=== PATIENT | female | born 1975 | race Two or more races ===

== ENCOUNTER 2017-03-04 00:50 | Emergency (ER) | payer OTHER ==
[~2017-03-04] VITALS: Ht 167.6 cm; Wt 100.0 kg
[~2017-03-04 00:50] MED LIST: FERR-83 PO; PRE20 PO; RANI150T11 PO
[2017-03-04 00:52] VITALS: BP 142/85; PULSE 64; RESP 16; O2SAT 99
--- NOTE | 2017-03-04 01:27 | ED.REPORT ---
HPI-Abd Pain F 40 and Over Date of Service Mar 04, 2017 ED Provider: Victor Hugo Cleaning MD Pt is a 41 year old female with a history of gallstones who presents to the ED complaining of RUQ abdominal pain onset this evening. She c/o associated nausea and back pain. She denies vomiting, fever, diarrhea, and any other symptoms. Pt reports that she had an US 2 years ago for similar symptoms and was diagnosed with gallstones. Nursing Notes Stated Complaint: R UPPER QUADRANT PAIN Chief Complaint: Female Abdominal Pain Nursing Notes Reviewed: Yes Allergies: Coded Allergies: No Known Allergies (Unverified , 06/19/15) Scheduled Ferrous Sulfate (Ferrous Sulfate) 325 Mg Tablet 325 MG PO DAILY Prednisone (PredniSONE) 20 Mg Tablet 40 MG PO DAILY Ranitidine (Zantac) 150 Mg Tablet 150 MG PO BID please verify dosage & frequency General Time Seen by MD: 01:26 Chief Complaint Abdominal pain Hx Obtained From: Patient Arrived By: Walk-in Sudden in Onset?: No Onset Occurred: 5 - 8 hours ago Symptom Duration: Since onset Location: : RUQ Quality: Painful Severity: Current: Moderate Severity: Maximum: Moderate Recent Healthcare: No recent doctor visit, No recent hospitalization Similar Sx Previous: Yes Past Medical History Past Medical History generally healthy Reports: GERD Past Surgical History right shoulder repair Family History Father: [place] and cardiac stenting in his 70s Reports: Coronary artery disease Smoking History Unknown if Ever Smoker Social History Alcohol Use: Denies alcohol use Drug Use: Denies drug use Other Social History: Good social support, Local resident Ambulatory Status Independent Review of Systems Constitutional: Denies: Fever GI: Reports: Abdominal pain, Nausea, Denies: Diarrhea, Vomiting Musculoskeletal: Reports: Back pain Complete sys rev & neg: except as marked. Physical Exam Vital Signs Vital Signs (First) Date Time Temp Pulse Resp B/P Pulse Ox O2 Delivery O2 Flow Rate FiO2 03/04/17 00:52 36.2 64 16 142/85 99 Room Air Initial VS: Reviewed, Vital signs normal Head / Eyes: Atraumatic, Normocephalic Neck: Supple, Full range of motion Extremities: Vascular intact, Neuro intact Skin: Warm, Dry, No cyanosis Neurologic: Alert, Oriented, Nonfocal Psychiatric: Mood/affect normal, Behavior normal General/Constitutional: Awake, Alert, No acute distress, Well hydrated, Cooperative Appearance / Presentation: Positive: Pale Respiratory / Chest: Atraumatic, Breath sounds NL, Breath sounds = bilat Cardiovascular: Heart rate NL, Regular rhythm, Heart sounds NL Abdomen: Atraumatic, Soft Tender in RUQ and epigastrium. Back: Atraumatic, Full range of motion CVA tenderness. Interpretation & Diagnostics US RUQ: IMPRESSION: Cholelithiasis. Mild hepatic steatosis, statistically, versus other hepatocellular process. Pancreas not optimally seen. Transmitted to the ED at 04:46 by Gina Loredo M.D. Lab Results Interpretation Result Diagram: 03/04/17 0120 03/04/17 0120 Test 03/04/17 01:20 03/04/17 01:30 White Blood Count 7.4th/mm3 (3.8-10.1) Red Blood Count 4.10mil/mm3 (3.90-5.20) Hemoglobin 10.9g/dL (12.0-15.6) Hematocrit 34.5% (35.0-46.0) Mean Corpuscular Volume 84.1fL (81-100) Mean Corpuscular Hemoglobin 26.6pg (27.0-35.0) Mean Corpuscular Hemoglobin Concent 31.6% (32.0-37.0) Red Cell Distribution Width 15.1% (12.3-15.4) Platelet Count 205bil/L (150-400) Neutrophils (%) (Auto) 60.3% (40-74) Lymphocytes (%) (Auto) 27.8% (14-46) Monocytes (%) (Auto) 9.1% (4-12) Eosinophils (%) (Auto) 1.9% (0-5) Basophils (%) (Auto) 0.8% (0-3) Hold Purple Top Tube Received (Received) Hold Blue Top Tube Received (Received) Sodium Level 137mEq/L (134-144) Potassium Level 4.2mEq/L (3.5-5.2) Chloride Level 102mEq/L (97-108) Carbon Dioxide Level 23mmol/L (18-29) Blood Urea Nitrogen 11mg/dL (6-24) Creatinine 0.64mg/dL (0.57-1.00) Estimat Glomerular Filtration Rate 146mL/min (>59) Glucose Level 105mg/dL (60-99) Calcium Level 9.5mg/dL (8.5-10.1) Magnesium Level 1.8mg/dL (1.6-2.6) Total Bilirubin 0.2mg/dL (0.0-1.2) Aspartate Amino Transf (AST/SGOT) 35U/L (0-50) Alanine Aminotransferase (ALT/SGPT) 28U/L (0-32) Alkaline Phosphatase 70U/L (25-150) Total Protein 7.5g/dL (6.4-8.4) Albumin 4.0g/dL (3.4-5.0) Lipase 46U/L (13-60) Hold Red Top Tube Received (Received) Hold [place] Top Tube Received (Received) Hold Urine Received (Received) Lab values outside NL range: no clinical significance. Re-Eval/Medical Decision Med Decision/Clinical Course 41-year-old female with known gallstones from an ultrasound 2 years ago. She now has increased right upper quadrant abdominal pain. Her labs are all normal. Ultrasound shows evidence of multiple gallstones but no significant evidence of cholecystitis or obstruction. She will be discharged home with instructions to eat small meals and avoid fatty foods. Tylenol and/or ibuprofen as stated for pain. Follow-up with surgeon for evaluation for cholecystectomy. Source of Hx: Old records Re-Evaluation/Progress #1: Time of Eval: 03:15 )( Re-Eval Abdomen: Soft Re-Evaluation/Progress Note: Pt rechecked. She reports that she is in pain again. Her pain is exacerbated when laying on her back. All questions addressed. Re-Evaluation/Progress #2: Time of Eval: 04:28 )( Re-Eval Abdomen: Soft Re-Evaluation/Progress Note: Pt rechecked. Informed pt of plan for discharge. Pt understands and agrees with plan for discharge. F/U instructions and RTER warnings given. All questions addressed. Counseled Regarding: Diagnosis, Lab results, Need for follow-up, When/why to return to ED Discharge & Departure Primary Impression: Gallstones Additional Impression: Biliary colic Disposition: Home Discharge Condition All VS Reviewed: Yes Condition: Stable Patient Instructions: Biliary Colic (ED) Additional Instructions: Many gallstones but no evidence of gallbladder infection or inflammation right now. Talked to a surgeon about getting your gallbladder taken out. Eat small meals and avoid fatty foods. Referrals: Maxime Perkins MD (PCP) Scribe Attestation Portions of this note were transcribed by Katie Naylor. I, Dr. Cleaning personally performed the history, physical exam and medical decision-making; I reviewed and confirmed the accuracy of the information in the transcribed note. Signed by: Ervin Chaudhary, 03/04/17 and 02:30. copies to: Maxime Perkins MD, Howard L MD Mar 04, 2017 01:27 Katie Demarco Mar 04, 2017 01:35
[2017-03-04] MEDS ORDERED: 0.9% Sodium Chloride 1,000 ML IV ONE ×2 (01:30→03:20)
[2017-03-04] MEDS ORDERED: Ondansetron 2 mg/mL 2 mL Inj IVPUSH PRN (01:30)
[2017-03-04 02:05] LABS: BASOPHILS % (AUTO) 0.8 % (0-3); EOSINOPHILS % (AUTO) 1.9 % (0-5); MONOCYTES % (AUTO) 9.1 % (4-12); Mean Corpuscular Hemoglobin 26.6 pg (27.0-35.0); Mean Corpuscular Volume 84.1 fL (81-100); NEUTROPHILS % (AUTO) 60.3 % (40-74); Platelet Count 205 bil/L (150-400)
[2017-03-04 02:34] LABS: Magnesium 1.8 mg/dL (1.6-2.6)
[2017-03-04] MEDS ORDERED: HYDROcodone-APAP 5-325 mg Tablet PO ONE (03:20)
[2017-03-04] MEDS ORDERED: HYDROmorphone 0.5 mg/0.5 mL iSecure Syringe IVPUSH PRN (03:20)
[2017-03-04 03:27] VITALS: BP 137/87; PULSE 66; RESP 16; O2SAT 99
[2017-03-04 04:37] VITALS: BP_SYST 129; BP_SYST 137; BP_DIAS 84; BP_DIAS 87; PULSE 66; PULSE 69; RESP 16; O2SAT 99
--- NOTE | 2017-03-04 11:18 | DRSVH ---
PROCEDURE: US ABDOMEN, LIMITED ([id number]) INDICATIONS: Right upper quadrant abdominal pain. TECHNIQUE: Real-time focused scanning was performed of the abdomen, with image documentation. COMPARISON: [facility], US, US ABDOMEN, 05/17/2015, 11:24. FINDINGS: There are gallstones and mild gallbladder wall thickening. No pericholecystic fluid or sono graphic Daily's sign. The liver demonstrates coarse echotexture. No intrahepatic biliary dilation. C ommon bile duct measures 5.1 mm. IMPRESSION: 1. Cholelithiasis. There is mild gallbladder wall thickening but no pericholecystic fluid collection or sonographic Daily sign. Recommend clinical correlation for early acute cholecystitis. 2. Liver demonstrates coarse echotexture. Please correlate with liver enzymes. Dictated by: Steve Estrada M.D. on 03/04/2017 at 8:04 Approved by: Steve Estrada M.D. on 03/04/2017 at 8:09
== END 2017-03-04 04:38 | disposition home or self-care (01) ==
LOC: SED 00:50
DX: K80.20 Calculus of gallbladder without cholecystitis without obstruction (principal); K21.9 Gastro-esophageal reflux disease without esophagitis
CPT/HCPCS: 36415; 76705; 80053; 81025; 83690; 83735; 85025; 96361; 96374; 96375; 99285; J1170; J2405; J7030